=== PATIENT | female | born 1985 | race African-American/Black ===

== ENCOUNTER 2016-12-11 20:56 | Emergency (ER) | payer SELFPAY ==
--- NOTE | ~2016-12-11 | CR170 ---
[facility] A Service of [facility] & [facility] RADIOLOGY TEXT RESULTS PATIENT: BINU TOMLINSON LOCATION: CFTX : 89 UNIT #: [id number] AGE: [address]: Ayaan Ascencio SEX: F ORDER DR: [id number] [facility] [address] [facility] [place], [place] [address] [id number] MR#: [id number] Acc #: [id number] NAME: BINU TOMLINSON : 1985 SEX: F STUDY DATE/TIME: 12/11/2016 20:13 UNIT: CFTX ROOM: STUDY DESCRIPTION: CR Knee 2 Views Rt Attending Physician: Ayaan Ascencio P.A.-C. Ordering Physician: Ayaan Ascencio P.A.-C. Primary Care Physician: No Primary Care Physician MEDICAL IMAGING REPORT This report is preliminary unless electronic signature is present EXAM Right knee radiograph. INDICATIONS Trauma. Swelling of the right knee. FINDINGS Two views of the right knee without comparison. FINDINGS There is no acute fracture, dislocation or effusion. No foreign body. IMPRESSION Negative right knee Dictated by... Alexi Spears M.D. THIS IS AN ELECTRONICALLY VERIFIED REPORT Alexi Spears M.D. at 12/12/2016 3:25 PM Parish TD: 12/11/2016 23:35 JOB #: [id number] MEDICAL IMAGING REPORT Page 1 of 1 COPY
== END 2016-12-11 21:19 | disposition home or self-care (01) ==
LOC: CFTX 20:56
DX: S80.01XA Contusion of right knee, initial encounter (principal); F17.210 Nicotine dependence, cigarettes, uncomplicated; V49.40XA Driver injured in collision with unspecified motor vehicles in traffic accident, initial encounter; Y92.488 Other paved roadways as the place of occurrence of the external cause
CPT/HCPCS: 73560; 99283